=== PATIENT | female | born 1990 | race Caucasian/White ===

== ENCOUNTER 2023-06-04 18:50 | Inpatient (IN) | payer BC, SELFPAY ==
[2023-06-04] VITALS (7 sets, daily range): BP systolic 112–139; BP diastolic 69–83; PULSE 36–80; RESP 16; TEMP 36.5–36.8; O2SAT 80–99; BMI 36.1
--- NOTE | 2023-06-04 20:11 | PM.OBHPLI ---
OB - H&P: HPI Labor/Induction History of Present Illness Time Seen by Provider: 20:12 Date Seen: 06/04/23 Chief Complaint: The patient is a 32 year old 2 para 1 at 39.0 weeks gestation by LMP and consistent with 7 week ultrasound, who presents for IOL for gestational diabetes. Chief complaint: IOL for GDM-diet controlled : 2 Para: 1 Narrative: Allyson Bae is a 32 year old female at 39.0 weeks gestation here for IOL for gestational diabetes. Patient's first was complicated by preeclampsia (without severe features), IOL at 37 weeks, LGA baby, and hemorrhage with QBL of 850cc. History of Present Dating criteria: based on LMP care: good care Ultrasounds: normal 1st trimester US and normal mid trimester US complications: gestational diabetes (diet controlled) Medical complications: none Labs Blood type: B (+) positive Rubella: immune RPR/VDLR: nonreactive GBS status: negative HBsAG: negative Review of Systems Status of ROS: Reports: 10 or more systems reviewed and unremarkable except as noted in History and below Eyes: Denies: change in vision Cardio: Denies: chest pain or shortness of breath with exertion Resp: Denies: shortness of breath : Denies: painful urination Psych: Reports: anxiety OB - H&P: Exam Physical Exam: Vital signs: Temp Pulse Resp BP Pulse Ox 98 F 73 16 127/80 97 06/04/23 20:06 06/04/23 20:06 06/04/23 18:58 06/04/23 20:06 06/04/23 20:07 Constitutional: Constitutional: no acute distress Routine HEENT Exam: Head: Present atraumatic and normal inspection Routine Neck Exam: Neck: Present full ROM Detailed Neck Exam: Thyroids: Thyroid: Present normal Routine Respiratory Exam: Respiratory: Present CTA bilaterally Routine Cardiovascular Exam: Cardiovascular: RRR, S1 and S2 Detailed Labor and Delivery Exam: Patient Gravid: Yes Dilation (cm): 1 Effacement (%): 40 Cervix position: posterior Consistency: medium Cervical ripeness score: 3 Contraction frequency (min): 4 Tachysystole: No Contraction intensity: Mild Fetus (Single): Station: -3 Amniotic Membrane Status: intact Heart Rate Baseline: 135 Monitor Accelerations: Present Monitor Decelerations: None Residential Variability: Moderate (6-25) Routine Extremities Exam: Extremities: Absent calf tenderness Routine Back/Spine/Pelvis Exam: Back/Spine: full ROM Routine Skin Exam: Present intact Routine Neurological Exam: Present alert and oriented X3 Routine Psychiatric Exam: Present normal affect OB - Problem Based A/P Additional Plan (1) Term : Status: Acute Plan: - here for IOL, cervix not favorable. Cook catheter placed without difficulty. (2) Gestational diabetes mellitus (GDM): Problem details: Diet controlled Status: Acute Plan: - blood sugars per protocol (3) History of hemorrhage, currently : Problem details: With last delivery, received pitocin, cytotec, hemabate (had preeclampsia), TXA, Bakri. QBL was 850 cc Status: Acute Plan: - Type and screen now - cytotec, TXA, pitocin at delivery (4) History of pre-eclampsia in prior , currently : Problem details: No hypertension in this , will monitor. Baseline pree labs in clinic were within normal limits. Status: Acute (5) Macrosomia: Problem details: baby was measuring 98% with 20 week scan. Most recently measuring 89%ile. Status: Acute Plan: - will be prepared for shoulder dystocia and hemorrhage. Delivery/Labor/Induction Plan Plan: induction Induction method: Intracervical balloon catheter Procedures Additional Procedures Additional Procedure Details: Cook catheter was placed with 60 and 60 cc in each balloon.
[2023-06-04 20:34] LABS: Basophils Percent Auto 0.2 % (0.0-3.0); Eosinophils Percent Auto 0.5 % (0.0-7.0); Hematocrit 39.9 % (33.0-51.0); Hemoglobin* 13.8 gm/dL (12.0-16.0); Immature Granulocytes Pct Auto 0.1 %; Mean Corpuscular HGB Conc 35 gm/dL (32-36); Mean Corpuscular Hemoglobin 31 pg (26-34); Mean Corpuscular Volume 89 fL (80-100); Neutrophils Percent Auto 73.2 % (42.0-72.0); Platelet Count* 151 K/uL (140-440); RDW Coefficient of Variation % 13.3 % (11.5-15.5); Red Blood Count 4.48 m/uL (4.00-5.20)
[2023-06-04 20:39] LABS: Slide Review Reflex No
[2023-06-04] MEDS: hydrOXYzine pamoate 25 MG CAPSULE 100 MG PO (21:55)
[2023-06-04] MEDS: MORPHINE 10 MG/ML inj IM (23:31)
[2023-06-05] VITALS (70 sets, daily range): BP systolic 104–159; BP diastolic 57–103; PULSE 64–230; TEMP 36.6–36.9; O2SAT 80–100
[2023-06-05] MEDS: LACTATED RINGERS 1000 ML 1,000 ML 125 ML IV ×5 (02:05→23:01)
[2023-06-05] MEDS: OXYTOCIN 30 unit/500 ML in NS 30 UNIT/500 ML BAG IVPB (02:08)
--- NOTE | 2023-06-05 07:05 | P.OBPN_ITS ---
Subjective Time Seen by Provider: 07:05 Date Seen: 06/05/23 Narrative: Patient slept some overnight with Vistaril and Morphine. Feels well this morning. Objective Exam: Resting comfortably in bed Vital Signs: Last Vital Signs Temp 98 F 06/05/23 05:00 Pulse 76 06/05/23 05:59 Resp 16 06/04/23 18:58 BP 109/65 06/05/23 05:59 Pulse Ox 97 06/05/23 06:00 Contractions Monitor mode: External Contraction Frequency: 3-5 Contraction pattern: Irregular Contraction intensity: Mild Pitocin Rate (mU/min): 6 Assessment Assessment: induction ongoing Station: -3 Status: Category l Heart Rate Baseline: 135 Penitentiary Variability: Moderate (6-25) Monitor Accelerations: Absent Monitor Decelerations: None Plan Plan: -Cook catheter to be removed at 8am - continue to titrate pitocin - AROM if needed - Analgesia-- desires epidural, will get when ready
[2023-06-05 15:41] LABS: Hematocrit 42.4 % (33.0-51.0); Hemoglobin* 14.4 gm/dL (12.0-16.0); Mean Corpuscular HGB Conc 34 gm/dL (32-36); Mean Corpuscular Hemoglobin 31 pg (26-34); Mean Corpuscular Volume 91 fL (80-100); Platelet Count* 153 K/uL (140-440); Red Blood Count 4.66 m/uL (4.00-5.20); White Blood Count* 12.27 K/uL (4.50-11.00)
[2023-06-05 15:46] LABS: Slide Review Reflex No
[2023-06-05 16:12] LABS: Aspartate Amino Transferase* 23 U/L (12-35); Blood Urea Nitrogen* 15 mg/dL (5-24); Creatinine* 0.7 mg/dL (0.5-1.5); Est. Creatinine Clearance* 108.01; Estimated Glomerular Filt Rate 118 ml/min
[2023-06-05 16:13] LABS: Alanine Aminotransferase* 12 U/L (4-35)
[2023-06-05 16:13] LABS: Total Protein Urine 11 mg/dL
[2023-06-05 16:14] LABS: Creatinine Urine 46.8 mg/dL
--- NOTE | 2023-06-05 17:52 | P.OBPN_ITS ---
Subjective Time Seen by Provider: 17:52 Date Seen: 06/05/23 Narrative: patient is comfortable in bed. Objective Exam: resting comfortably Vital Signs: Last Vital Signs Temp 98 F 06/05/23 17:00 Pulse 73 06/05/23 16:37 Resp 16 06/04/23 18:58 BP 134/92 H 06/05/23 16:37 Pulse Ox 97 06/05/23 15:48 Pelvic Exam Dilation (cm): 5.5 Effacement (%): 50 Station: -2 Contractions Monitor mode: External Contraction pattern: Irregular Contraction intensity: Strong/Firm Pitocin Rate (mU/min): 19 Assessment Assessment: induction ongoing Station: -3 Amniotic Membrane Status: AROM (AROM now of clear fluid) Status: Category l Heart Rate Baseline: 135 Amusement Equipment Operator Variability: Moderate (6-25) Monitor Accelerations: Absent Monitor Decelerations: None Plan Plan: - AROM now of clear fluid - titrate pitocin prn - analgesia prn (plans on epidural)
[2023-06-05] MEDS: ROPIVACAINE 0.2% 100 ml 100 ML 12 MG EPIDURAL (18:42)
[2023-06-05] MEDS: LIDOCAINE 1 % PF 30 ML INJECTION (18:43)
[2023-06-05] MEDS: LIDOCAINE 2% (PF) 5 ML VIAL EPIDURAL (18:43)
--- NOTE | 2023-06-05 18:56 | PM.ANBPRC ---
PFSH PFSH Social History What is your current living situation?: I presently have a place to live Problems where you live: no known problems In the past 12 months, utilities in danger of being shut off: no In past 12 months, lack of transportation kept you from medical appts, meetings, work, or getting things needed for daily living: no In the past 12 mos, have been you worried that your food would run out before you had money to buy more?: never true In the past 12 mos, the food you bought just didn't last and you didn't have money to buy more?: never true Smoking Status: Never smoker How often does anyone, including family, friends and others, physically hurt you: never How often does anyone, including family, friends and others, insult or talk down to you: never How often does anyone, including family, friends and others, threaten you with harm: never How often does anyone, including family, friends and others, scream or curse at you: never Meds Home Medications and Allergies Home Medications Medication Instructions Recorded Confirmed Type aspirin 81 mg tablet,delayed 81 mg PO DAILY 06/05/23 06/05/23 History release Allergies Allergy/AdvReac Type Severity Reaction Status Date / Time No Known Drug Allergies Allergy Verified 06/05/23 17:14 Results Labs Labs: Laboratory Results - last 24 hr 06/04/23 06/05/23 06/05/23 20:19 15:24 15:30 WBC 12.30 H 12.27 H RBC 4.48 4.66 Hgb 13.8 14.4 Hct 39.9 42.4 MCV 89 91 MCH 31 31 MCHC 35 34 RDW Coeff of Cristina 13.3 Plt Count 151 153 Neut % (Auto) 73.2 H Lymph % (Auto) 19.0 L [place] % (Auto) 7.0 Eos % (Auto) 0.5 Baso % (Auto) 0.2 Neut # (Auto) 9.00 H Lymph # (Auto) 2.30 [place] # (Auto) 0.90 Eos # (Auto) 0.10 Baso # (Auto) 0.00 Abs Immat Gran (auto) 0.00 Imm/Tot Granulo (auto) 0.1 BUN 15 Creatinine 0.7 Estimated Creat Clear 108.01 Estimated GFR 118 AST 23 ALT 12 Urine Creatinine 46.8 Protein/Creatinin Ratio 0.20 H Urine Total Protein 11 Blood Type B Positive Antibody Screen NEGATIVE Vital Signs Vital Signs: Last Vital Signs Temp 98 F 06/05/23 17:00 Pulse 76 06/05/23 18:55 Resp 16 06/04/23 18:58 BP 147/85 H 06/05/23 18:55 Pulse Ox 99 06/05/23 18:53 Weight: 101.605 kg Height: 167.64 cm Anesthesia Procedures Epidural Insertion Patient Location: OB Start Time: 18:00 Stop Time: : Start Date: 06/05/23 Stop Date: 06/05/23 Reason for Block: primary anesthetic Patient Position: sitting Performed By: Janes Reagan Preanesthetic Checklist: IV checked, risks and benefits discussed, surgical consent, monitors and equipment checked, pre-op evaluation, timeout performed and anesthesia consent Prep: chlorhexidine gluconate Monitoring: blood pressure monitoring, nuclear monitoring technician, continuous pulse oximetry and heart rate Approach: midline Vertebral Space: lumbar (1-5) Needle Type: Tuohy needle Injection Technique: continuous catheter Needle gauge: 17 Needle Length (cm): 10 cm Needle Insertion Depth (cm): 6 Catheter Gauge: 19 Catheter Type: multi-orifice Catheter at skin depth (cm): 12 Test Dose Result: negative and lidocaine 1.5% with epinephrine 1 to 200,000 Events: other
[2023-06-05] MEDS: miSOPROStoL 800 MCG/4 TABLET PR (23:07)
--- NOTE | 2023-06-05 23:26 | W.PM.OBVAGDE ---
OB Procedure Vag Delivery Mother Details Mother Details: The patient is a 32 year-old, 2, Para 1, admitted on 06/04/23 at Days gestation. : 2 Para: 1 Weeks Gestation: 39.1 Admission Date: 06/04/23 Additional Details Amniotic Membrane Status: AROM Amniotic Membrane Rupture Date: 06/05/23 Amniotic Membrane Rupture Time: 17:30 Amniotic Membrane Fluid Description: Clear Analgesia/Anesthesia Type: Epidural Waterbirth: No Pitcoin: Yes Intrapartal Events: Labor Induction Induction Method: Intracervical balloon catheter, per pitocin protocol and AROM Labor Onset: 18:00 Complete: 21:59 Pushin:01 Heart: heart tones during second stage were category 1. Did have prolonged decel to 90s while over last 2 contractions. Delivery Details Delivery Date: 06/05/23 Delivery Time: 23:04 Route of delivery: Infant Gender: Female Infant Viability: Alive; Heart Rate Present Position at Delivery: OA Delivery Details: Patient was admitted for IOL for gestational diabetes (diet controlled). Cervix was not favorable, so cook catheter was placed on evening of 06/03. Patient had pitocin at low dose that was increased after catheter was removed. Pitocin was titrated and AROM was completed at 1730 of clear fluid. Patient then progressed well. She received epidural for analgesia. She became complete at 2159. She labored down for 1 hour. She started pushing at 2301 and delivered a viable female infant over intact perineum at 2304. Nuchal cord was reduced x 1. Baby was placed on maternal abdomen. Cord was clamped and cut after a 30-60 second delay. Nose and mouth were bulb suctioned.? weight pending. Placenta was delivered spontaneously. Given history of hemorrhage, cytotec and pitocin were started immediately after delivery. QBL 100 mls. 1 Minute Interval Total Score: 8 5 Minute Interval Total Score: 9 Additional Details Shoulder Dystocia: No Placenta Delivery Time: 23:09 Placental Delivery Description: Spontaneous Delivery repair: Vicryl Blood Loss: 100 Laceration: Perineal - 1st Degree (small 1st degree perineal laceration repaired) Episiotomy Description: None Blood Loss Measurement Type: QBL Bakri Used: No Sponge/Need Count Correct: Yes Cord Vessel Description: 3 Vessels, Nuchal Cord and Reduced Event Summary Status: Mother and were stable after delivery. Disposition: no change
[2023-06-06] VITALS (8 sets, daily range): BP systolic 123–147; BP diastolic 77–96; PULSE 66–75; RESP 16; TEMP 36.4–36.8; O2SAT 97–99
--- NOTE | 2023-06-06 00:31 | PM.OBPNVD1 ---
OB - PN:Subj Subjective Time Seen by Provider: 00:31 Date Seen: 06/06/23 Patient comments OB post-: no complaints status: and doing well [place] feeding status: exclusively OB - PN: Obj Exam Physical Exam: Vital signs: Temp Pulse Resp BP Pulse Ox 98.5 F 71 16 123/77 99 06/05/23 22:06 06/06/23 00:28 06/04/23 18:58 06/06/23 00:28 06/05/23 19:33 Constitutional: Constitutional: no acute distress Routine HEENT Exam: Head: Present atraumatic Routine Respiratory Exam: Respiratory: Present CTA bilaterally Routine Cardiovascular Exam: Cardiovascular: Present RRR, S1 and S2; Absent murmur Routine Extremities Exam: Extremities: Absent calf tenderness Routine Neurological Exam: Neurological: Present alert and oriented X3 OB - PN: Obj Data Labs Labs: Laboratory Results - last 24 hr 06/05/23 06/05/23 15:24 15:30 WBC 12.27 H RBC 4.66 Hgb 14.4 Hct 42.4 MCV 91 MCH 31 MCHC 34 Plt Count 153 BUN 15 Creatinine 0.7 Estimated Creat Clear 108.01 Estimated GFR 118 AST 23 ALT 12 Urine Creatinine 46.8 Protein/Creatinin Ratio 0.20 H Urine Total Protein 11 OB - PN: A/P Delivery Assessment and Plan (1) Term : Status: Acute (2) Gestational diabetes mellitus (GDM): Problem details: Diet controlled Status: Acute (3) Gestational hypertension: Problem details: Preeclampsia labs within normal limits Status: Acute Assessment and Plan: -recheck labs in am (4) (normal spontaneous vaginal delivery): Problem details: QBL 100. Received pitocin and cytotec for history of PPH Status: Acute Plan - routine cares - continue to monitor bleeding. Plan day: 1 Plan: routine care
[2023-06-06] MEDS: ACETAMINOPHEN 500 MG TABLET 1000 MG PO ×4 (02:33→21:03)
[2023-06-06] MEDS: IBUPROFEN 600 MG TABLET PO ×3 (03:28→19:01)
[2023-06-06 06:26] LABS: Basophils Percent Auto 0.1 % (0.0-3.0); Eosinophils Percent Auto 0.3 % (0.0-7.0); Hemoglobin* 14.3 gm/dL (12.0-16.0); Immature Granulocytes Pct Auto 0.1 %; Lymphocytes Percent Auto 10.4 % (20-44); Mean Corpuscular HGB Conc 34 gm/dL (32-36); Mean Corpuscular Hemoglobin 31 pg (26-34); Mean Corpuscular Volume 90 fL (80-100); Monocytes Percent Auto 8.5 % (0.0-11.0); Neutrophils Percent Auto 80.6 % (42.0-72.0); Platelet Count* 145 K/uL (140-440); RDW Coefficient of Variation % 13.1 % (11.5-15.5); Red Blood Count 4.68 m/uL (4.00-5.20); White Blood Count* 15.03 K/uL (4.50-11.00)
[2023-06-06 06:28] LABS: Slide Review Reflex No
[2023-06-06 06:47] LABS: Alanine Aminotransferase* 13 U/L (4-35); Aspartate Amino Transferase* 29 U/L (12-35); Blood Urea Nitrogen* 11 mg/dL (5-24); Creatinine* 0.7 mg/dL (0.5-1.5); Est. Creatinine Clearance* 108.01; Estimated Glomerular Filt Rate 118 ml/min
--- NOTE | 2023-06-06 13:31 | PM.ANPOST ---
Post Anesthesia Note Post Anesthesia Note Patient seen: Inpatient Respiratory Status: adequate Cardiovascular Status: adequate Mental Status: baseline Pain: adequate Temp: baseline Anesthetic awareness: N/A Complications: none Follow care: none
[2023-06-06] MEDS: LANOLIN CREAM 1 APPLIC TOPICAL (15:21)
[2023-06-07 00:06] VITALS: BP 116/75; PULSE 58; RESP 18; TEMP 36.4; O2SAT 98
[2023-06-07 00:58] LABS: Rapid Plasma Reagin (RPR) Non Reactive (Non Reactive)
[2023-06-07] MEDS: IBUPROFEN 600 MG TABLET PO ×2 (01:31→06:43)
[2023-06-07] MEDS: ACETAMINOPHEN 500 MG TABLET 1000 MG PO (03:16)
[2023-06-07 04:25] VITALS: BP 127/82; PULSE 58; RESP 16; TEMP 36.4; O2SAT 98
--- NOTE | 2023-06-07 07:21 | P.DS_ITS ---
DS: Providers Provider Time Seen by Provider: 07:00 Date Seen: 06/07/23 Date of admission: 06/04/23 18:50 Primary care physician: Radha Perry MD Admitting Clinician: Radha Perry MD Attending Physician on discharge: Radha Perry MD Date of Discharge: 06/07/23 DS: Diagnosis Discharge Diagnosis (1) Gestational diabetes mellitus (GDM): Status: Acute Problem details: Diet controlled (2) Gestational hypertension: Status: Acute Problem details: Preeclampsia labs within normal limits (3) (normal spontaneous vaginal delivery): Status: Acute Problem details: QBL 100. Received pitocin and cytotec for history of PPH Exam Const: Vital Signs, click to edit/add: Vital Signs - 24 hr 06/06/23 08:14 06/06/23 14:21 06/06/23 20:14 Temperature 97.9 F 97.6 F Pulse Rate [Right Pulse Oximeter] 67 66 70 Respiratory Rate 16 16 16 Blood Pressure [Le ft Arm] 127/85 147/96 H 131/84 Pulse Oximetry 99 97 Oxygen Delivery Me thod Room Air Room Air Room Air 06/07/23 00:06 06/07/23 04:25 Temperature 97.6 F 97.6 F Pulse Rate [Right Pulse Oximeter] 58 L 58 L Respiratory Rate 18 16 Blood Pressure [Le ft Arm] 116/75 127/82 Pulse Oximetry 98 98 Oxygen Delivery Me thod Room Air Room Air Documenting provider has reviewed patient's vital signs: yes Common normals: no apparent distress, healthy appearing and alert General appearance: cooperative and comfortable : Uterus: U/U and firm Lochia: small Neuro: Sensorium/orientation: alert OB - DS: Summary Hospital Course Hospital Course: The patient is a 32 year old G 2 P 1 at 39 2/7 weeks gestation that was admitted to the Center on 06/04/23 for induction due to diet controlled GDM. See delivery note for details. She had an uncomplicated/complicated vaginal delivery. She delivered a viable female . She is breast feeding. the patient has done well. Pt declined the 2hGTT here in hospital. Pt is ambulating well. tolerating orals. Voiding and stooling without difficulty. Lochia mild. Pt is eager to go home. Had one elevated BP at 147/96 with multiple borderline and this morning 127/82. Asymptomatic. Has BP cuff at home Peripartum Data Infant delivery method: Vaginal Laceration description: Perineal - 1st Degree Episiotomy description: None complications: none [place] Infant Gender: Female Infant Discharge Plan: Home Time Spent with Patient Time attestation: Total time spent providing and/or coordinating discharge services: Discharge Plan Discharge Disposition: Home, Self-Care Date of Admission: 06/04/23 18:50 Primary Care Provider: Radha Perry Condition: Stable Anticipated Discharge Date/Time: 06/07/23 07:28 Discharge Medications: New acetaminophen 500 mg Tablet 1,000 mg PO Q6H PRNQty: 90 0RF docusate sodium 100 mg Capsule 100 mg PO DAILY Qty: 30 0RF ibuprofen 600 mg Tablet 600 mg PO Q6H PRNQty: 60 0RF Discontinued aspirin 81 mg tablet,delayed release (DR/EC) 81 mg PO DAILY Discharge Orders: Discharge Order (Routine); Ordered 06/07/23 Ordered By: Diamond Lewis Patient Education: OB Vaginal/Breast Feeding Additional Instructions: Check bp daily after sitting and relaxed for 15minutes. keep log Activity Level: Activity as Tolerated Activity Detail: Pelvic rest x 6wks Follow Up Appointments: Radha Perry MD [Primary Care Provider] - (BP check tomorrow with Dr Perry at check. ) [facility] Inst[facility]
[2023-06-07 08:01] VITALS: BP 133/86; PULSE 80; RESP 16; TEMP 36.4
== END 2023-06-07 09:15 | disposition home or self-care (01) | DRG 560 ==
PROVIDERS: Admitting Provider Family Medicine; PCP Family Medicine; Visit Provider Family Medicine
DX: O24.420 Gestational diabetes mellitus in childbirth, diet controlled (principal); O70.0 First degree perineal laceration during delivery; O13.4 Gestational [pregnancy-induced] hypertension without significant proteinuria, complicating childbirth; O76 Abnormality in fetal heart rate and rhythm complicating labor and delivery; Z3A.39 39 weeks gestation of pregnancy; Z37.0 Single live birth
CPT/HCPCS: 01967; 36415; 59200; 82565; 82570; 82962; 84156; 84450; 84460; 84520; 85018; 85025; 85027; 86592; 86850; 86900; 86901; 88307; A9270; C1726; J2001; J2270; J2371; J2795; J3010; J7120